=== PATIENT | male | born 1980 | race Caucasian/White ===

== ENCOUNTER → 2024-01-29 15:56 | Outpatient (CLI) | payer OTHER, SELFPAY ==
--- NOTE | 2024-01-29 | DI.ECHO.S_ITS ---
[place] [facility]+ [facility] : : [address] : : [place] : : [id number] : : Phone: [phone] Echocardiogram Report + + :Name: YOSELIN LANGE Study Date: 01/29/2024 Height: 70 in : :[facility] ReadingLocation: Weight: 190 lb : : Gender: Male BSA: 2.0 m2 : :: 1980 Age: 43 yrs BP: 125/80 mmHg: :Reason For Study: TACHYCARDIA : :Ordering Physician: TRISTON, : :SYLVIA Performed By: Thomas Jensen : :Referring: SYLVIA GOLDSTEIN : + + Interpretation Summary The left ventricle is normal in size. Left ventricular systolic function appears normal without focal wall motion abnormalities. The ejection fraction is estimated to be 55-60%. Diastolic parameters suggest a relaxation abnormality of the left ventricle, consistent with probable normal filling pressures. The right ventricle is normal in size and function. The left atrial size is normal. There is mild mitral regurgitation. There is no significant valvular heart disease. The aortic root is normal size. Procedure: A two-dimensional transthoracic echocardiogram with color flow and Doppler was performed. The study quality was technically good. There is no prior echocardiogram noted for this patient. The patient was in normal sinus rhythm during the exam. Left Ventricle: The left ventricle is normal in size. There is normal left ventricular wall thickness. There is no ventricular septal defect visualized. Left ventricular systolic function appears normal without focal wall motion abnormalities. The ejection fraction is estimated to be 55-60%. Diastolic parameters suggest a relaxation abnormality of the left ventricle, consistent with probable normal filling pressures. Right Ventricle: The right ventricle is normal in size and function. Atria: The left atrial size is normal. Right atrial size is normal. There is no Doppler evidence for an atrial septal defect. Mitral Valve: The mitral valve is normal in structure and function. There is mild mitral regurgitation. Aortic Valve: The aortic valve is normal in structure and function. No aortic regurgitation is present. Tricuspid Valve: The tricuspid valve is normal in structure and function. There is trace tricuspid regurgitation. Pulmonic Valve: The pulmonic valve is normal in structure and function. There is no pulmonic valvular regurgitation. There is no significant valvular heart disease. Great Vessels: The aortic root is normal size. The dimensions of the ascending aorta are normal. The pulmonary artery is normal size. The inferior vena cava was not visualized. Pericardium/ Pleura There is no pericardial effusion. There is no pleural effusion. MMode/2D Measurements & Calculations LVIDd: 4.8 cm LVOT diam: 2.5 cm LVIDs: 3.1 cm Ao root diam: 3.4 cm FS: 35.2 % asc Aorta Diam: 3.0 cm EPSS: 0.36 cm Ao Arch Diam (Prox Trans): 1.8 cm IVSd: 0.80 cm LVPWd: 0.77 cm LV patrick. diameter/BSA (cm/m^2): 2.4 LV sys. diameter/BSA (cm/m^2): 1.5 LA A2 area: 18.9 cm2 RA long axis: 4.1 cm LA A4 area: 16.6 cm2 RA area: 10.4 cm2 LA length (vol): 5.1 cm RA vol: 22.4 ml LA vol: 52.7 ml RA : 11.0 ml/m2 LA vol index: 25.8 ml/m2 RVD1 (basal): 3.5 cm RVD2 (mid): 3.4 cm TAPSE: 2.6 cm Doppler Measurements & Calculations Ao V2 max: 148.9 cm/sec LVOT Max Charly: 130.4 cm/sec Ao V2 mean: 99.5 cm/sec LV V1 max P.8 mmHg Ao max P.9 mmHg LV V1 VTI: 26.5 cm Ao mean P.6 mmHg ARIEL(I,D): 4.2 cm2 Ao V2 VTI: 30.7 cm ARIEL(V,D): 4.3 cm2 sev ratio: 0.86 ARIEL indexed to BSA (cm^2/m^2): 2.1 MV E max charly: 74.0 cm/sec TR max charly: 230.5 cm/sec MV A max charly: 43.0 cm/sec TR max P.3 mmHg MV E/A: 1.7 PA V2 max: 113.1 cm/sec Med Peak E' Charly: 9.8 cm/sec PA V2 mean: 68.9 cm/sec E/E' med: 7.5 PA mean P.3 mmHg Lat Peak E' Charly: 10.0 cm/sec PA pr(Accel): 24.2 mmHg E/E' lat: 7.4 E/e' average: 7.5 MV dec time: 0.15 sec SV(LVOT): 128.7 ml Reading Physician:07:11 PM
== END ==
LOC: ECHO 15:59
PROVIDERS: PCP Oral & Maxillofacial Surgery; Visit Provider Orthopaedic Surgery
DX: Z00.00 Encounter for general adult medical examination without abnormal findings (principal); I34.0 Nonrheumatic mitral (valve) insufficiency
CPT/HCPCS: 93306